=== PATIENT | male | born 1950 | race Hispanic/Latino ===

== ENCOUNTER 2021-01-13 12:57 | Inpatient (IN) | payer OTHER ==
[~2021-01-13] VITALS: Ht 170.2 cm; Wt 74.6 kg
[2021-01-13] MEDS ORDERED: ONDANSETRON 4MG INJ IVP ONE (17:00)
[2021-01-13 17:12] LABS: BASOPHILS % (AUTO) 0.4 % (0.0-5.0); EOSINOPHILS % (AUTO) 2.1 % (0.0-8.0); HEMATOCRIT 41.6 % (42-54); MEAN CORPUSCULAR HEMOGLOBIN 33.1 pg (27.0-33.0); MEAN CORPUSCULAR HGB CONC 33.7 g/dL (32.0-36.0); MEAN CORPUSCULAR VOLUME 98.3 fL (79-99); MONOCYTES % (AUTO) 9.4 % (3.0-13.0); NEUTROPHILS % (AUTO) 68.7 % (40.0-77.0); PLATELET COUNT (AUTO) 219 K/uL (130-400); RED BLOOD CELL COUNT(AUTO) 4.23 MIL/uL (4.50-6.20); RED CELL DISTRIBUTION WIDTH 12.7 % (11.0-15.5); WHITE BLOOD COUNT (AUTO) 6.8 K/uL (4.8-10.8)
[2021-01-13 17:23] LABS: INR 0.92 (0.85-1.15); POTASSIUM 5.3 mmol/L (3.5-5.1); PROTHROMBIN TIME 10.1 SEC (9.6-11.6)
[2021-01-13 17:24] LABS: PARTIAL THROMBOPLASTIN TIME 26.1 SEC (26.3-35.5)
[2021-01-13 17:27] LABS: ALBUMIN 3.6 g/dL (3.5-5.0); BILIRUBIN,TOTAL 0.4 mg/dL (0.2-1.0); TOTAL PROTEIN, SERUM 7.4 g/dL (6.0-8.3)
[2021-01-13] MEDS ORDERED: MORPHINE 4 MG SYG IM ONE (18:00)
[2021-01-13] MEDS ORDERED: MORPHINE 4 MG SYG IV ONE (18:30)
[2021-01-13] MEDS ORDERED: ONDANSETRON 4MG INJ IVP PRN (19:00)
[2021-01-13 19:51] VITALS: BP 146/76
[2021-01-13] MEDS: FAMOTIDINE 20MG VIAL IV SCH (21:42)
[2021-01-13 22:00] VITALS: BP 118/60
[2021-01-13] MEDS: MORPHINE 2 MG SYG IVP PRN (22:41)
[2021-01-13] MEDS: 0.9%NACL 1000ML 1,000 ML IV SCH (22:41)
[2021-01-13 23:21] VITALS: BP 102/51
[2021-01-14] VITALS (26 sets, daily range): BP systolic 102–162; BP diastolic 50–82
[2021-01-14] MEDS ORDERED: TRAZ-187 PO (02:46)
[2021-01-14] MEDS ORDERED: QUET100T34 PO (02:46)
[2021-01-14] MEDS ORDERED: SERT-440 PO (02:46)
[2021-01-14] MEDS ORDERED: ACET1TAB25 PO (02:46)
[2021-01-14] MEDS: MORPHINE 2 MG SYG IVP PRN ×2 (02:54→20:09)
[2021-01-14 05:13] LABS: HEMATOCRIT 34.9 % (42-54); MEAN CORPUSCULAR HEMOGLOBIN 32.8 pg (27.0-33.0); MEAN CORPUSCULAR HGB CONC 33.8 g/dL (32.0-36.0); MEAN CORPUSCULAR VOLUME 96.9 fL (79-99); RED BLOOD CELL COUNT(AUTO) 3.6 MIL/uL (4.50-6.20); RED CELL DISTRIBUTION WIDTH 12.4 % (11.0-15.5); WHITE BLOOD COUNT (AUTO) 5.3 K/uL (4.8-10.8)
[2021-01-14 05:27] LABS: ALBUMIN 2.8 g/dL (3.5-5.0); BILIRUBIN,TOTAL 0.5 mg/dL (0.2-1.0); CREATININE 1.1 mg/dL (0.5-1.5); POTASSIUM 4.1 mmol/L (3.5-5.1); TOTAL PROTEIN, SERUM 6.3 g/dL (6.0-8.3)
[2021-01-14] MEDS: FAMOTIDINE 20MG VIAL IV SCH ×2 (09:44→20:09)
[2021-01-14] MEDS: 0.9%NACL 1000ML 1,000 ML IV SCH ×2 (11:47→16:20)
[2021-01-14] MEDS ORDERED: ROCURONIUM 10MG/1ML SYR 10 MG/ML ML ONE (15:10)
[2021-01-14] MEDS ORDERED: PROPOFOL 10 MG/ML 20ML VIAL IV ONE (15:10)
[2021-01-14] MEDS ORDERED: LIDOCAINE HCL-MPF 1% 5ML AMP IJ ONE (15:10)
[2021-01-14] MEDS ORDERED: MIDAZOLAM HCL 1 MG/ML 2ML VIAL ONE (15:10)
[2021-01-14] MEDS ORDERED: SUCCINYLCHOLINE CHLORIDE 20 MG/ML 10 ML VIAL ONE (15:10)
[2021-01-14] MEDS ORDERED: FENTANYL CITRATE PF 50 MCG/1 ML 2ML VIAL ONE (15:11)
[2021-01-14] MEDS ORDERED: CEFAZOLIN SODIUM 1 GM VIAL ONE (15:30)
[2021-01-14] MEDS ORDERED: EPHEDRINE SULFATE 50 MG/ML AMPULE ONE (16:00)
[2021-01-14] MEDS ORDERED: MEPERIDINE-PF 25 MG/ML SYG ONE ×2 (16:29→16:45)
[2021-01-14] MEDS: CEFAZOLIN SODIUM 1 GM VIAL IVP SCH (23:19)
[2021-01-15] MEDS: 0.9%NACL 1000ML 1,000 ML IV SCH ×2 (01:41→15:00)
[2021-01-15 03:12] VITALS: BP 105/54
[2021-01-15] MEDS: MORPHINE 2 MG SYG IVP PRN (04:21)
[2021-01-15] MEDS: CEFAZOLIN SODIUM 1 GM VIAL IVP SCH (06:50)
[2021-01-15 07:50] VITALS: BP 148/71
[2021-01-15] MEDS: FAMOTIDINE 20MG VIAL IV SCH ×2 (09:18→20:58)
[2021-01-15 10:11] LABS: BASOPHILS % (AUTO) 0.4 % (0.0-5.0); EOSINOPHILS % (AUTO) 1.3 % (0.0-8.0); HEMATOCRIT 34.3 % (42-54); LYMPHOCYTES % (AUTO) 10.4 % (21.0-51.0); MEAN CORPUSCULAR HEMOGLOBIN 33.2 pg (27.0-33.0); MEAN CORPUSCULAR HGB CONC 33.8 g/dL (32.0-36.0); MEAN CORPUSCULAR VOLUME 98.3 fL (79-99); MONOCYTES % (AUTO) 10.6 % (3.0-13.0); NEUTROPHILS % (AUTO) 76.9 % (40.0-77.0); PLATELET COUNT (AUTO) 191 K/uL (130-400); RED BLOOD CELL COUNT(AUTO) 3.49 MIL/uL (4.50-6.20); RED CELL DISTRIBUTION WIDTH 12.3 % (11.0-15.5)
[2021-01-15 10:19] LABS: CREATININE 1.2 mg/dL (0.5-1.5); POTASSIUM 4.3 mmol/L (3.5-5.1)
[2021-01-15 11:03] VITALS: BP 134/60
[2021-01-15] MEDS ORDERED: KETOROLAC 15MG/ML VIAL (15MG/ML) IM PRN (12:00)
[2021-01-15] MEDS: HYDROCODONE/ACETAMINOPHEN 5/325 MG TAB PO PRN ×2 (12:44→19:10)
[2021-01-15 16:18] VITALS: BP 134/65
[2021-01-15 20:09] VITALS: BP 115/61
[2021-01-15] MEDS ORDERED: TRAZODONE HCL 100 MG TABLET PO SCH (21:00)
[2021-01-15] MEDS ORDERED: QUETIAPINE FUMARATE 100 MG TAB PO SCH (21:00)
[2021-01-15 22:52] VITALS: BP 106/52
[2021-01-16 02:57] VITALS: BP 107/60
[2021-01-16] MEDS: 0.9%NACL 1000ML 1,000 ML IV SCH (03:40)
[2021-01-16 06:47] LABS: BASOPHILS % (AUTO) 0.6 % (0.0-5.0); EOSINOPHILS % (AUTO) 3.1 % (0.0-8.0); HEMATOCRIT 34.6 % (42-54); MEAN CORPUSCULAR HEMOGLOBIN 32.7 pg (27.0-33.0); MEAN CORPUSCULAR HGB CONC 33.8 g/dL (32.0-36.0); MEAN CORPUSCULAR VOLUME 96.6 fL (79-99); MONOCYTES % (AUTO) 13.4 % (3.0-13.0); NEUTROPHILS % (AUTO) 67.5 % (40.0-77.0); PLATELET COUNT (AUTO) 195 K/uL (130-400); RED BLOOD CELL COUNT(AUTO) 3.58 MIL/uL (4.50-6.20); RED CELL DISTRIBUTION WIDTH 12.3 % (11.0-15.5); WHITE BLOOD COUNT (AUTO) 7.1 K/uL (4.8-10.8)
[2021-01-16 07:03] LABS: CREATININE 1.1 mg/dL (0.5-1.5); MAGNESIUM 1.8 mg/dL (1.80-2.40); POTASSIUM 4.3 mmol/L (3.5-5.1)
[2021-01-16 08:30] VITALS: BP 129/69
[2021-01-16] MEDS: FAMOTIDINE 20MG VIAL IV SCH (08:57)
[2021-01-16] MEDS ORDERED: SERTRALINE HCL 50 MG TABLET PO SCH (09:00)
[2021-01-16] MEDS: HYDROCODONE/ACETAMINOPHEN 5/325 MG TAB PO PRN (09:02)
[2021-01-16 11:00] VITALS: BP 138/66
[2021-01-16] MEDS ORDERED: MAGNESIUM 2GM PREMIX 50ML 50 ML IV SCH (11:00)
== END 2021-01-16 16:00 | disposition home or self-care (01) | DRG 494 ==
LOC: EDH 12:57 → EDHIP 18:37 → 3AH 01-14 00:15
PROVIDERS: ADMIT Hospitalist; ATTEND Hospitalist
PROC: 0SHG34Z Insertion of Internal Fixation Device into Left Ankle Joint, Percutaneous Approach (ICD-10-PCS; principal; 2021-01-14 15:00)
DX: S82.842A Displaced bimalleolar fracture of left lower leg, initial encounter for closed fracture (principal); M19.90 Unspecified osteoarthritis, unspecified site; S93.02XA Subluxation of left ankle joint, initial encounter; Z20.822 Contact with and (suspected) exposure to COVID-19; Y93.89 Activity, other specified; Y92.89 Other specified places as the place of occurrence of the external cause; Y99.8 Other external cause status
CPT/HCPCS: 36415; 71045; 73610; 80048; 80053; 83735; 84484; 85025; 85027; 85610; 85730; 87635; 93005; 97039; A4606; C1776; G0378; J0330; J0690; J1885; J2175; J2250; J2270; J2405; J2704; J3010; J3490; J7030; J7120

== ENCOUNTER 2021-02-06 10:44 | Day surgery (SDC) | payer OTHER ==
[2021-02-03 09:40] LABS: BASOPHILS % (AUTO) 1.2 % (0.0-5.0); EOSINOPHILS % (AUTO) 2.7 % (0.0-8.0); HEMATOCRIT 42.4 % (42-54); MEAN CORPUSCULAR HEMOGLOBIN 32.7 pg (27.0-33.0); MEAN CORPUSCULAR HGB CONC 33.3 g/dL (32.0-36.0); MEAN CORPUSCULAR VOLUME 98.4 fL (79-99); MONOCYTES % (AUTO) 9.2 % (3.0-13.0); PLATELET COUNT (AUTO) 304 K/uL (130-400); RED BLOOD CELL COUNT(AUTO) 4.31 MIL/uL (4.50-6.20); RED CELL DISTRIBUTION WIDTH 12.4 % (11.0-15.5); WHITE BLOOD COUNT (AUTO) 5.9 K/uL (4.8-10.8)
[2021-02-03 09:49] LABS: POTASSIUM 3.9 mmol/L (3.5-5.1)
[2021-02-03 09:51] LABS: INR 0.94 (0.85-1.15); PROTHROMBIN TIME 10.3 SEC (9.6-11.6)
[2021-02-03 12:03] VITALS: BP 122/65
[~2021-02-06] VITALS: Ht 170.2 cm; Wt 74.8 kg
[2021-02-06] VITALS (13 sets, daily range): BP systolic 107–148; BP diastolic 55–96
[~2021-02-06 10:44] MED LIST: ACET1TAB25 PO; DOCU240C25 PO; IBUP-2077 PO; QUET100T PO; SERT-440 PO; TRAZ-187 PO
[2021-02-06] MEDS ORDERED: LACTATED RINGERS 1000ML 1,000 ML IV ONE (11:55)
[2021-02-06] MEDS: CEFAZOLIN SODIUM 1 GM VIAL ONE ×2 (12:05→16:30)
[2021-02-06] MEDS ORDERED: KETAMINE 50MG/ML SYRINGE 50 MG/ML DISP.SYRIN IV ONE (16:12)
[2021-02-06] MEDS ORDERED: PROPOFOL 10 MG/ML 20ML VIAL IV ONE (16:13)
[2021-02-06] MEDS ORDERED: EPHEDRINE SULFATE 50 MG/ML AMPULE ONE (16:43)
[2021-02-06] MEDS ORDERED: ONDANSETRON 4MG INJ ONE (18:05)
[2021-02-06] MEDS ORDERED: MEPERIDINE-PF 25 MG/ML SYG ONE (18:28)
== END 2021-02-06 19:45 | disposition home or self-care (01) ==
LOC: DAH 10:44
PROVIDERS: ATTEND Orthopaedic Surgery
DX: Z44.10 Encounter for fitting and adjustment of unspecified artificial leg (principal); S82.62XA Displaced fracture of lateral malleolus of left fibula, initial encounter for closed fracture; Z20.822 Contact with and (suspected) exposure to COVID-19; E78.5 Hyperlipidemia, unspecified; Z79.899 Other long term (current) drug therapy; Z98.890 Other specified postprocedural states; X58.XXXA Exposure to other specified factors, initial encounter; Y93.89 Activity, other specified; Y92.89 Other specified places as the place of occurrence of the external cause
CPT/HCPCS: 20694; 27792; 27829; 36415; 64445; 64447; 71045; 73610; 76942; 80048; 85025; 85610; 87635; 93005; A4215; A4221; A4222; A4223; A4600; A4649 ×4; A4663; A4930 ×3; A6223; C1713 ×6; C9803; J0690; J2175; J2405; J2704; J3490 ×2; J7120